=== PATIENT | male | born 1970 | race Caucasian/White ===

== ENCOUNTER 2018-08-23 20:45 | Emergency (ER) | payer OTHER ==
[2018-08-23 21:13] VITALS: BP 143/95
[2018-08-23 22:15] LABS: ANION GAP 15.9 mmol/L (10-20); CHLORIDE,CL 105 mmol/L (98-107); SODIUM,NA 143 mmol/L (136-145)
[2018-08-23] MEDS: Ibuprofen 200 MG Tab PO ONE (22:46)
--- NOTE | 2018-08-24 06:39 | EDM.PDOC ---
ED HPI GENERAL MEDICAL PROBLEM - General Chief Complaint: Cardiovascular Problem Stated Complaint: DIZZINESS Time Seen by Provider: 08/23/18 20:50 Source of Information: Reports: Patient History Limitations: Reports: No Limitations - History of Present Illness INITIAL COMMENTS - FREE TEXT/NARRATIVE: Pt. presents to ER with complaints of palpitations, lightheadedness, fatigue, and near syncope. He states that he has been experiencing the palpitations and sensation of heart racing for a month. He states that he occasionally has some chest discomfort in his L lateral chest if he is lying on his L side. He states tonight he was setting up for an event and had a episode of tunnel vision and lightheadedness that lasted several minutes. He did not ever lose consciousness and he recalls the entire event. He states that he does not have a PCP but is scheduled to see Dr. Mackey tomorrow in the clinic. Pt. denies any substernal chest pain, jaw, arm, neck or back pain. Denies any nausea or vomiting. No diaphoresis. He has also had some intermittent lip numbness/tingling. Denies any shortness of breath. Onset Date: 08/23/18 Location: Reports: Chest Right Flank Pain Score (Numeric/FACES): 4 - Related Data Allergies Allergy/AdvReac Type Severity Reaction Status Date / Time No Known Allergies Allergy Verified 08/23/18 21:02 Home Meds: Home Meds Loratadine [Claritin] 10 mg PO DAILY PRN 03/13/16 [History] Past Medical History HEENT History: Reports: Allergic Rhinitis Other Cardiovascular History: Had an extensive work up for chest pain about a year ago. All tests negative. Genitourinary History: Reports: Renal Calculus - Past Surgical History Other GI Surgeries/Procedures: Hiatal hernia surgery Social & Family History - Tobacco Use Smoking Status *Q: Never Smoker ED ROS GENERAL - Review of Systems Review Of Systems: See Below Constitutional: Reports: No Symptoms HEENT: Reports: No Symptoms Respiratory: Reports: No Symptoms, Pleuritic Chest Pain Cardiovascular: Reports: Chest Pain Endocrine: Reports: No Symptoms GI/Abdominal: Reports: No Symptoms : Reports: Flank Pain (states he feels he is passing a kidney stone) Musculoskeletal: Reports: No Symptoms Skin: Reports: No Symptoms Neurological: Reports: No Symptoms Psychiatric: Reports: No Symptoms Hematologic/Lymphatic: Reports: No Symptoms Immunologic: Reports: No Symptoms ED EXAM, GENERAL - Physical Exam Exam: See Below Exam Limited By: No Limitations General Appearance: Alert, WD/WN, No Apparent Distress Throat/Mouth: Normal Inspection, Normal Lips, Normal Teeth, Normal Gums, Normal Oropharynx, Normal Voice, No Airway Compromise Head: Atraumatic, Normocephalic Neck: Normal Inspection, Supple, Non-Tender, Full Range of Motion Respiratory/Chest: No Respiratory Distress, Lungs Clear, Normal Breath Sounds, No Accessory Muscle Use, Chest Non-Tender Cardiovascular: Normal Peripheral Pulses, Regular Rate, Rhythm, No Edema, No Gallop, No JVD, No Murmur, No Rub GI/Abdominal: Normal Bowel Sounds, Soft, Non-Tender, No Organomegaly, No Distention, No Abnormal Bruit, No Mass (Male) Exam: Deferred Rectal (Males) Exam: Deferred Back Exam: Normal Inspection, Full Range of Motion Extremities: Normal Inspection, Normal Range of Motion, Non-Tender, No Pedal Edema, Normal Capillary Refill Neurological: Alert, Oriented, CN II-XII Intact, Normal Cognition, Normal Gait, Normal Reflexes, No Motor/Sensory Deficits Psychiatric: Normal Affect, Normal Mood Skin Exam: Warm, Dry, Intact, Normal Color, No Rash EKG INTERPRETATION Rhythm: NSR Flushing: Normal P-Wave: Present QRS: Normal ST-T: Normal QT: Normal Course - Vital Signs Last Recorded V/S: Last Vital Signs Temp 36.8 C 08/23/18 21:03 Pulse 72 08/23/18 21:03 Resp 16 08/23/18 21:03 BP 143/95 H 08/23/18 21:03 Pulse Ox 97 08/23/18 21:03 - Orders/Labs/Meds Orders: Active Orders 24 hr Category Date Time Status EKG Documentation Completion [RC] STAT Care 08/23/18 21:11 Active Chest 2V [CR] Stat Exams 08/23/18 21:10 Taken Labs: Laboratory Tests 08/23/18 08/23/18 08/23/18 Range/Units 21:37 21:37 21:37 WBC 10.8 H (4.0-10.0) x10^3/uL RBC 5.18 (4.5-6.0) x10^6/uL Hgb 15.0 (14.0-18.0) g/dL Hct 44.9 (40.0-52.0) % MCV 86.7 (78.0-93.0) fL MCH 29.0 (26.0-32.0) pg MCHC 33.4 (32.0-36.0) g/dL RDW Coeff of Rosa 13.9 (10.0-15.0) % Plt Count 179 (130-400) x10^3/uL Neut % (Auto) 68.3 (50.0-80.0) % Lymph % (Auto) 22.8 L (25.0-50.0) % Cassia % (Auto) 6.7 (2.0-11.0) % Eos % (Auto) 1.9 (0.0-4.0) % Baso % (Auto) 0.3 (0.2-1.2) % PT 10.5 (10.0-12.8) SEC INR 0.9 L (2.0-3.5) D-Dimer, Quantitative (<=0.58) mg/LFEU Sodium 143 (136-145) mmol/L Potassium 3.9 (3.5-5.1) mmol/L Chloride 105 (98-107) mmol/L Carbon Dioxide 26 (21-32) mmol/L Anion Gap 15.9 (10-20) mmol/L BUN 20 H (7-18) mg/dL Creatinine 0.9 (0.70-1.30) mg/dL Est Cr Clr Drug Dosing 116.70 mL/min Estimated GFR (MDRD) > 60 Glucose 102 (74-106) mg/dL Calcium 8.5 (8.5-10.1) mg/dL Corrected Calcium 8.98 (8.5-10.1) mg/dL Phosphorus 4.5 (2.6-4.7) mg/dL Magnesium 2.1 (1.8-2.4) mg/dL Total Bilirubin 0.6 (0.2-1.0) mg/dL AST 9 L (15-37) U/L ALT 24 (16-63) U/L Alkaline Phosphatase 71 (46-116) U/L Troponin I < 0.017 (<=0.056) ng/mL C-Reactive Protein 0.2 (<=0.9) mg/dL NT-Pro-B Natriuret Pep 32 (<=125) pg/mL Total Protein 6.7 (6.4-8.2) g/dL Albumin 3.4 (3.4-5.0) g/dL Globulin 3.3 g/dL Albumin/Globulin Ratio 1.03 TSH, Ultra Sensitive 3.253 (0.358-3.74) uIU/mL 08/23/18 Range/Units 21:37 WBC (4.0-10.0) x10^3/uL RBC (4.5-6.0) x10^6/uL Hgb (14.0-18.0) g/dL Hct (40.0-52.0) % MCV (78.0-93.0) fL MCH (26.0-32.0) pg MCHC (32.0-36.0) g/dL RDW Coeff of Rosa (10.0-15.0) % Plt Count (130-400) x10^3/uL Neut % (Auto) (50.0-80.0) % Lymph % (Auto) (25.0-50.0) % Cassia % (Auto) (2.0-11.0) % Eos % (Auto) (0.0-4.0) % Baso % (Auto) (0.2-1.2) % PT (10.0-12.8) SEC INR (2.0-3.5) D-Dimer, Quantitative < 0.19 (<=0.58) mg/LFEU Sodium (136-145) mmol/L Potassium (3.5-5.1) mmol/L Chloride (98-107) mmol/L Carbon Dioxide (21-32) mmol/L Anion Gap (10-20) mmol/L BUN (7-18) mg/dL Creatinine (0.70-1.30) mg/dL Est Cr Clr Drug Dosing mL/min Estimated GFR (MDRD) Glucose (74-106) mg/dL Calcium (8.5-10.1) mg/dL Corrected Calcium (8.5-10.1) mg/dL Phosphorus (2.6-4.7) mg/dL Magnesium (1.8-2.4) mg/dL Total Bilirubin (0.2-1.0) mg/dL AST (15-37) U/L ALT (16-63) U/L Alkaline Phosphatase (46-116) U/L Troponin I (<=0.056) ng/mL C-Reactive Protein (<=0.9) mg/dL NT-Pro-B Natriuret Pep (<=125) pg/mL Total Protein (6.4-8.2) g/dL Albumin (3.4-5.0) g/dL Globulin g/dL Albumin/Globulin Ratio TSH, Ultra Sensitive (0.358-3.74) uIU/mL Meds: Medications Discontinued Medications Generic Name Dose Route Start Last Admin Trade Name Kareem PRN Reason Stop Dose Admin Ibuprofen 600 mg 08/23/18 22:35 08/23/18 22:46 Motrin PO 08/23/18 22:36 600 mg ONETIME ONE Administration - Re-Assessments/Exams Free Text/Narrative Re-Assessment/Exam: Chest x-ray is negative for acute pathology Departure - Departure Time of Disposition: 23:00 Disposition: Home, Self-Care 01 Condition: Good Clinical Impression: Palpitations, Near syncope Instructions: Palpitations, [id number] Referrals: PCP,None [Primary Care Provider] - Forms: ED Department Discharge Additional Instructions: Home to rest. I advise you get a stress test and holter study done in the near future. Return to ER if you have persistent palpitations, chest pain, shortness of breath, or lightheadedness. - My Orders Last 24 Hours: My Active Orders 08/23/18 21:10 Chest 2V [CR] Stat 08/23/18 21:11 EKG Documentation Completion [RC] STAT - Assessment/Plan Last 24 Hours: My Active Orders 08/23/18 21:10 Chest 2V [CR] Stat 08/23/18 21:11 EKG Documentation Completion [RC] STAT Plan: Pt. was discharged. All of his studies were within normal limits, including trop I, d dimer, chest x-ray and EKG. He will follow-up with Dr. Mackey. Discussed findings with the patient. He had only occasional PVCs and no tachycardia during his stay in ER. He should have a stress test/stress echo and holter study. He did not have any pain during his stay in ER. Advised him to return to ER if he has any chest pain, lightheadedness, syncope, or shortness of breath.
--- NOTE | 2018-08-24 09:00 | CR ---
[id number] RAD/RAD Chest PA And Lateral EXAM: RAD Chest PA And Lateral CLINICAL DATA: BRADYCARDIA. SYNCOPE. COMPARISON: CORRELATION IS MADE WITH THE EXAM OF SEPTEMBER 25, 2014. FINDINGS: The lungs are clear. The cardiomediastinal contour is prominent but stable. The regional bones and soft tissues are unremarkable. IMPRESSION: NO ACUTE PROCESS. Caden So MD 08/24/18 0858 Thank you for allowing us to participate in the care of your patient.
== END 2018-08-23 23:00 | disposition home or self-care (01) ==
LOC: VM.ED 20:45
DX: R55 Syncope and collapse (principal); R00.2 Palpitations; Z79.899 Other long term (current) drug therapy
CPT/HCPCS: 36415; 71046; 80053; 83735; 83880; 84100; 84443; 84484; 85025; 85379; 85610; 86140; 93005; 99284; A9270-GY

== ENCOUNTER 2019-07-18 07:29 | Emergency (ER) | payer OTHER ==
[2019-07-18] MEDS: Lactated Ringers 1,000 ML IV ONE (07:45)
[2019-07-18 08:07] VITALS: BP 154/103; PULSE 76
[2019-07-18 08:22] LABS: CHLORIDE,CL 107 mmol/L (98-107); SODIUM,NA 143 mmol/L (136-145)
[2019-07-18 08:23] LABS: ANION GAP 14.5 mmol/L (10-20)
--- NOTE | 2019-07-18 09:22 | EDM.PDOC ---
ED HPI GENERAL MEDICAL PROBLEM - General Chief Complaint: Flank Pain Stated Complaint: Left FLank Pain Time Seen by Provider: 07/18/19 08:00 Source of Information: Reports: Patient History Limitations: Reports: No Limitations - History of Present Illness INITIAL COMMENTS - FREE TEXT/NARRATIVE: Patient comes emergency department today with complaints of left flank pain and most likely a kidney stone he reports. She has a longstanding history of recurrent kidney stones. He usually has 2-3 a year. They have been primarily calcium oxalate. His last kidney stone was a couple of months ago. He has seen nephrology for the kidney stones as well as urology. He usually drinks about 3 L of water a day to prevent kidney stone formation. This morning he woke up had a severe pain in his left flank very consistent crampy colicky type pain with his kidney stones in the past. He had a very painful urination that appeared to be more concentrated than it typically would be for him. Take his Flomax at home that he typically does when he has a kidney stone. He continued to have very severe pain more than normal so he came to the ED. Just prior to arrival to the ED the patients pain resolved on its own. He has had no steffen hematuria. No fever no chills. He had some nausea with the severe waves of pain this morning but it has resolved. No vomiting. No other pain in his abdomen. No diarrhea or constipation. No fever no chills. Left Flank Pain Pain Score (Numeric/FACES): 3 - Related Data Allergies Allergy/AdvReac Type Severity Reaction Status Date / Time No Known Allergies Allergy Verified 07/18/19 07:55 Home Meds: Home Meds Loratadine [Claritin] 10 mg PO DAILY PRN 03/13/16 [History] Ondansetron [Ondansetron ODT] 4 mg PO Q6H PRN #20 tab.rapdis 07/18/19 [Rx] Tamsulosin HCl [Flomax] 0.4 mg PO DAILY PRN 07/18/19 [History] Tamsulosin [Flomax] 0.4 mg PO DAILY #30 cap.er 07/18/19 [Rx] Past Medical History HEENT History: Reports: Allergic Rhinitis Other Cardiovascular History: Had an extensive work up for chest pain about a year ago. All tests negative. Genitourinary History: Reports: Renal Calculus Musculoskeletal History: Reports: Arthritis - Past Surgical History Other GI Surgeries/Procedures: Hiatal hernia surgery Male Surgical History: Reports: Lithotripsy (ESWL) Social & Family History - Tobacco Use Smoking Status *Q: Never Smoker - Recreational Drug Use Recreational Drug Use: No ED ROS GENERAL - Review of Systems Review Of Systems: Comprehensive ROS is negative, except as noted in HPI. ED EXAM, RENAL/ - Physical Exam Exam: See Below Text/Narrative:: Patient is resting very comfortably on the cot and appears in no acute distress or discomfort. Exam Limited By: No Limitations General Appearance: Alert, WD/WN Eye Exam: Bilateral Eye: EOMI, PERRL Ears: Normal External Exam Nose: Normal Inspection Throat/Mouth: Normal Inspection, Normal Lips, Normal Oropharynx Head: Atraumatic, Normocephalic Neck: Normal Inspection Respiratory/Chest: No Respiratory Distress, Lungs Clear, Normal Breath Sounds, No Accessory Muscle Use Cardiovascular: Normal Peripheral Pulses, Regular Rate, Rhythm GI/Abdominal: Normal Bowel Sounds, Soft, Non-Tender (Male) Exam: Deferred Rectal (Males) Exam: Deferred Back Exam: Normal Inspection, Full Range of Motion. No: CVA Tenderness (L), CVA Tenderness (R) Extremities: Normal Inspection, No Pedal Edema Neurological: Alert, Oriented, Normal Cognition, No Motor/Sensory Deficits Psychiatric: Normal Affect, Normal Mood Skin Exam: Warm, Dry, Intact, Normal Color, No Rash Lymphatic: No Adenopathy Course - Vital Signs Last Recorded V/S: Last Vital Signs Temp 36.6 C 07/18/19 08:03 Pulse 76 07/18/19 08:03 Resp 16 07/18/19 08:03 BP 154/103 H 07/18/19 08:03 Pulse Ox 96 07/18/19 08:03 - Orders/Labs/Meds Labs: Laboratory Tests 07/18/19 07/18/19 07/18/19 Range/Units 07:45 07:45 08:45 WBC 7.2 (4.0-10.0) x10^3/uL RBC 5.22 (4.5-6.0) x10^6/uL Hgb 14.8 (14.0-18.0) g/dL Hct 44.9 (40.0-52.0) % MCV 86.0 (78.0-93.0) fL MCH 28.4 (26.0-32.0) pg MCHC 33.0 (32.0-36.0) g/dL RDW Coeff of Rosa 14.3 (10.0-15.0) % Plt Count 196 (130-400) x10^3/uL Neut % (Auto) 55.0 (50.0-80.0) % Lymph % (Auto) 30.5 (25.0-50.0) % Ulster % (Auto) 9.6 (2.0-11.0) % Eos % (Auto) 4.6 H (0.0-4.0) % Baso % (Auto) 0.3 (0.2-1.2) % Sodium 143 (136-145) mmol/L Potassium 3.5 (3.5-5.1) mmol/L Chloride 107 (98-107) mmol/L Carbon Dioxide 25 (21-32) mmol/L Anion Gap 14.5 (10-20) mmol/L BUN 13 (7-18) mg/dL Creatinine 1.0 (0.70-1.30) mg/dL Est Cr Clr Drug Dosing 103.89 mL/min Estimated GFR (MDRD) > 60 Glucose 108 H (74-106) mg/dL Calcium 8.3 L (8.5-10.1) mg/dL Urine Color Yellow (YELLOW) Urine Appearance Slightly cloudy H (CLEAR) Urine pH 7.0 (5.0-8.0) Ur Specific Clyde 1.025 Urine Protein Negative (NEGATIVE) mg/dL Urine Glucose (UA) Negative (NEGATIVE) mg/dL Urine Ketones Negative (NEGATIVE) mg/dL Urine Occult Blood Moderate H (NEGATIVE) Urine Nitrite Negative (NEGATIVE) Urine Bilirubin Negative (NEGATIVE) Urine Urobilinogen 0.2 (0.2) EU/dL Ur Leukocyte Esterase Negative (NEGATIVE) Urine RBC 30-40 H (NOT SEEN) /HPF Urine WBC 0-5 (NOT SEEN) /HPF Ur Squamous Epith Cells Not seen (NEGATIVE) /HPF Amorphous Sediment Moderate Urine Bacteria Rare (NEGATIVE) /HPF Urine Mucus Few H (NEGATIVE) /LPF Meds: Medications Discontinued Medications Generic Name Dose Route Start Last Admin Trade Name Freq PRN Reason Stop Dose Admin Lactated Ringer's 1,000 mls @ 999 mls/hr 07/18/19 08:13 07/18/19 07:45 Ringers, Lactated IV 07/18/19 09:13 999 mls/hr ONETIME ONE Administration Orphenadrine Citrate 60 mg 07/18/19 08:13 07/18/19 08:17 Norflex IV 07/18/19 08:14 60 mg ONETIME ONE Administration - Re-Assessments/Exams Free Text/Narrative Re-Assessment/Exam: 07/18/19 Although the patient's pain has already resolved after the Flomax and ibuprofen taken at home I did give him Norflex IV as well as a liter of LR. His laboratory evaluation is rather unremarkable for his blood panel. His urine clearly has quite a bit of blood in it but there is no infectious property. As his pain is completely resolved it is most likely that the stone is already passed into his bladder. I did offer a CT scan of the abdomen although I do not feel that it will change much for management at this time as he is most likely already gotten his stone down into his bladder and he has had recurrent stones he is very aware of what his symptomology is for stones and this is a very typical presentation for kidney stones. They are comfortable with just straining his urine and returning if there is any other bumps. I will send him home with some extra Flomax as well as Zofran and hydrocodone in case he has recurrence of his kidney stones. Is very typical management that he has had before in the past for his stones. He is comfortable with this plan and his questions are answered. Departure - Departure Time of Disposition: 09:16 Disposition: Home, Self-Care 01 Clinical Impression: Kidney stone on left side, Ureteric colic - Discharge Information Prescriptions: Ondansetron [Ondansetron ODT] 4 mg PO Q6H PRN #20 tab.rapdis PRN Reason: Nausea/Vomiting Tamsulosin [Flomax] 0.4 mg PO DAILY #30 cap.er Instructions: Kidney Stones, [id number] Referrals: Genesis Mackey MD [Primary Care Provider] - Forms: ED Department Discharge Additional Instructions: Increase fluids as much as possible for the next few days. Flomax, 1 capsule daily for the next 7 days. Rx sent to Pharmacy. Ondansetron, 1 tab every 6 hrs as needed for nausea vomiting. Rx sent to Pharmacy. Tylenol and or Ibuprofen as needed for pain. If pain not controlled with above. [place]uma, 1 tablet every 4 hours with food as needed for pain. Caution sedation. Rx given to the patient #15. Return to the ED if new or worsening symptoms. Follow up with PCP in the next week if not improving sooner if worse. Sepsis Event Note - Evaluation Sepsis Screening Result: No Definite Risk - Focused Exam Vital Signs: Vital Signs Temp Pulse Resp BP Pulse Ox 07/18/19 08:03 36.6 C 76 16 154/103 H 96 Date Exam was Performed: 07/18/19 Time Exam was Performed: 15:13 - Assessment/Plan Assessment:: Recurrent kidney stone. Most likely already passed into the bladder. Plan: Increase fluids as much as possible for the next few days. Flomax, 1 capsule daily for the next 7 days. Rx sent to Pharmacy. Ondansetron, 1 tab every 6 hrs as needed for nausea vomiting. Rx sent to Pharmacy. Tylenol and or Ibuprofen as needed for pain. If pain not controlled with above. Yuma, 1 tablet every 4 hours with food as needed for pain. Caution sedation. Rx given to the patient #15. Return to the ED if new or worsening symptoms. Follow up with PCP in the next week if not improving sooner if worse.
== END 2019-07-18 09:35 | disposition home or self-care (01) ==
LOC: SUPCPDRO 07:29 → VM.ED 07:29
DX: N20.0 Calculus of kidney (principal); M19.90 Unspecified osteoarthritis, unspecified site; Z87.442 Personal history of urinary calculi; Z79.899 Other long term (current) drug therapy
CPT/HCPCS: 36415; 80048; 81001; 85025; 96361; 96374; 99284; J2360; J7120

== ENCOUNTER 2020-05-02 08:24 | Day surgery (SDC) | payer OTHER ==
[~2020-05-02 08:24] MED LIST: Lactated Ringers 1,000 ML IV SCH; Sodium Chloride 0.9% 10 ML Syringe FLUSH PRN
[2020-05-02] MEDS ORDERED: fentaNYL 100 MCG/2 ML SDV ONE (08:48)
[2020-05-02] MEDS ORDERED: Propofol 200 MG/20 ML SDV ONE ×5 (08:48→11:18)
[2020-05-02] MEDS: Ondansetron 4 MG/2 ML SDV IV PRN (09:00)
[2020-05-02] MEDS: Lactated Ringers 1,000 ML IV SCH (09:01)
[2020-05-02] MEDS ORDERED: Metoclopramide 10 MG/2 ML SDV ONE (10:43)
[2020-05-02 12:33] VITALS: BP 135/89; PULSE 81
--- NOTE | 2020-05-02 13:20 | OR ---
PREOPERATIVE DIAGNOSIS: Screening colonoscopy. POSTOPERATIVE DIAGNOSIS: Colon polyps. PROCEDURE PERFORMED: Total flexible colonoscopy with biopsies. ANESTHESIA: MAC anesthesia. COMPLICATIONS: None apparent. BLOOD LOSS: Minimal. FINDINGS: 1. Sigmoid colon polyp, 2 mm, cold forceps. 2. Sigmoid colon polyps x2, 3 mm/2 mm, cold forceps. 3. Moderate sigmoid diverticulosis. START TIME: 1047. CECUM TIME: 1112. STOP TIME: 1132. BOWEL PREP: Lander class 2. INDICATIONS FOR PROCEDURE: Mr. Feliciano is a 49-year-old male who is here for his first routine screening colonoscopy. He has no family history of colon cancer. He denies any bloody or dark black stools. DETAILS OF PROCEDURE: After informed consent was obtained, the patient was brought to the procedure room and placed in left lateral decubitus position. MAC anesthesia was induced by Anesthesia colleagues. The colonoscope was introduced into the rectum and advanced all the way to the cecum. The appendiceal orifice and ileocecal valve were photographed. The colonoscope was then slowly withdrawn. No pathology was identified except for what is mentioned in the above findings section. Retroflexed view was obtained and the procedure was terminated. PATHOLOGY: A) Colon, sigmoid polyp Hyperplastic polyp B) Colon, sigmoid polyps Hyperplastic polyps RECOMMENDATIONS: Repeat screening colonoscopy in 10 years. RKM: 05/02/2020 11:42:12 MODL: 05/02/2020 12:08:34 /[id number] MTDD
--- NOTE | 2020-05-13 14:06 | LETTER ---
05/13/2020 RE: NAVDEEP PONCE : 1970 Navdeep Ponce [address] [place] [id number] Dear Mr. Ponce: I am writing to inform you of the pathology reports from your recent colonoscopy. You had 3 polyps which were hyperplastic polyps. A hyperplastic polyp is a benign polyp which is not considered precancerous. You will need another repeat screening colonoscopy in 10 years. Warmest regards,
== END 2020-05-02 12:45 | disposition home or self-care (01) ==
LOC: VM.SDS 08:24
PROVIDERS: ATTEND Student in an Organized Health Care Education/Training Program
DX: Z12.11 Encounter for screening for malignant neoplasm of colon (principal); K63.5 Polyp of colon; K57.30 Diverticulosis of large intestine without perforation or abscess without bleeding; E66.9 Obesity, unspecified; K21.9 Gastro-esophageal reflux disease without esophagitis; Z98.84 Bariatric surgery status; Z98.890 Other specified postprocedural states; G89.29 Other chronic pain; Z79.899 Other long term (current) drug therapy; Z68.33 Body mass index [BMI] 33.0-33.9, adult
CPT/HCPCS: 00812; J2405; J2704; J2765; J3010; J7120

== ENCOUNTER 2020-12-16 12:20 | Emergency (ER) | payer OTHER ==
[2020-12-16] MEDS ORDERED: Orphenadrine 60 MG/2 ML Inj IM ONE (12:23)
[2020-12-16] MEDS: Orphenadrine 60 MG/2 ML Inj IV ONE (12:50)
[2020-12-16] MEDS: Ketorolac 30 MG/ML SDV IVPUSH ONE (12:50)
[2020-12-16 13:00] LABS: CHLORIDE,CL 101 mmol/L (98-107); SODIUM,NA 134 mmol/L (136-145)
[2020-12-16 13:01] LABS: ANION GAP 11.9 mmol/L (5-15)
--- NOTE | 2020-12-16 13:08 | CT ---
[id number] CT/CT Abdomen Pelvis WO IV EXAM: ABDOMEN AND PELVIS CT WITHOUT CONTRAST INDICATION: Right flank pain with concern for renal calculus. COMPARISON: September 03, 2016. DISCUSSION: There are couple of small nonobstructing left intrarenal calculi. No right-sided calculi. No ureteral calculus or hydronephrosis on either side. Mild subsegmental atelectasis or scarring in the lung bases. Cholecystectomy. Diverticulosis of the colon without evidence of diverticulitis. Small fat-containing umbilical and right inguinal hernias. Unenhanced images of the liver, pancreas, spleen, adrenal glands, small bowel, and the appendix are normal in appearance. No adenopathy, free air free fluid. IMPRESSION: 1. Nonobstructing left intrarenal calculi. No ureteral calculus or hydronephrosis on either side. Rufus Sorensen MD 12/16/20 [id number] Thank you for allowing us to participate in the care of your patient.
[2020-12-16 13:25] VITALS: BP 139/84; PULSE 67
[2020-12-16] MEDS: Sodium Chloride 0.9% 1,000 ML IV ONE (13:30)
--- NOTE | 2020-12-16 13:41 | EDM.PDOC ---
ED HPI GENERAL MEDICAL PROBLEM - General Chief Complaint: Genitourinary Problem Stated Complaint: KIDNEY STONE Time Seen by Provider: 12/16/20 12:20 Source of Information: Reports: Patient, Family, RN, RN Notes Reviewed History Limitations: Reports: No Limitations - History of Present Illness INITIAL COMMENTS - FREE TEXT/NARRATIVE: Patient is a 50-year-old male who presents to ER with complaint of right sided abdominal/flank pain that is sharp and began approximately 230 this morning. Patient states the pain woke him up. Admits to nausea vomiting, hot flashes, chills. Denies fever, diarrhea. Patient admits to urinary retention. States he only urinated a small amount this morning and has not urinated since 0900 today. Patient states significant history of kidney stones. He states most of his stones are on the right side, very rarely on the left. Patient feels he has an obstructing stone at this time. Denies blood in the urine. Patient states last bowel movement was yesterday and was normal for him. Onset: Today, Sudden Treatments DIET TECH: Reports: Other (see below) Other Treatments DIET TECH: hydrocodone, zofran. Right Middle Abdominal Pain Score (Numeric/FACES): 6 - Related Data Allergies Allergy/AdvReac Type Severity Reaction Status Date / Time No Known Allergies Allergy Verified 05/02/20 09:18 Home Meds: Home Meds Acetaminophen/HYDROcodone [[place] 325-5 MG] 1 - 2 tab PO Q6H PRN 03/03/20 [History] Alclometasone [Aclovate 0.05%] 1 applic TOP BID 03/03/20 [History] Ibuprofen 200 - 600 mg PO Q4H PRN 03/03/20 [History] Loratadine/Pseudoephedrine [Claritin-D 12 Hour] 1 tab PO BID 03/03/20 [History] Multivitamin 1 each PO DAILY 03/03/20 [History] Tamsulosin [Flomax] 0.4 mg PO DAILY PRN 03/03/20 [History] Past Medical History HEENT History: Reports: Allergic Rhinitis Other Cardiovascular History: Had an extensive work up for chest pain about a year ago. All tests negative. Respiratory History: Reports: Other (See Below) Other Respiratory History: snoring, chronic hiccoughs Gastrointestinal History: Reports: GERD Genitourinary History: Reports: Renal Calculus Musculoskeletal History: Reports: Arthritis, Other (See Below) Other Musculoskeletal History: congenital pes planus Neurological History: Reports: Other (See Below) Other Neuro History: RLS, periodic limb movement disorder Endocrine/Metabolic History: Reports: Obesity/BMI 30+ Dermatologic History: Reports: Melanoma - Past Surgical History GI Surgical History: Reports: Cholecystectomy, EGD, Kat[place] Fundoplication Other GI Surgeries/Procedures: Hiatal hernia surgery Male Surgical History: Reports: Lithotripsy (ESWL), Renal Calculus Musculoskeletal Surgical History: Reports: Shoulder Surgery Social & Family History - Tobacco Use Tobacco Use Status *Q: Never Tobacco User Second Hand Smoke Exposure: No - Recreational Drug Use Recreational Drug Use: No ED ROS GENERAL - Review of Systems Review Of Systems: Comprehensive ROS is negative, except as noted in HPI. ED EXAM, RENAL/ - Physical Exam Exam: See Below Exam Limited By: No Limitations General Appearance: Alert, WD/WN, Mild Distress Eye Exam: Bilateral Eye: EOMI, Normal Inspection Ears: Normal External Exam, Hearing Grossly Normal Nose: Normal Inspection Throat/Mouth: Normal Inspection, Normal Voice, No Airway Compromise Head: Atraumatic, Normocephalic Neck: Normal Inspection, Supple, Non-Tender, Full Range of Motion Respiratory/Chest: No Respiratory Distress, Lungs Clear, Normal Breath Sounds, No Accessory Muscle Use, Chest Non-Tender Cardiovascular: Normal Peripheral Pulses, Regular Rate, Rhythm, No Edema, No Gallop, No JVD, No Murmur, No Rub GI/Abdominal: Normal Bowel Sounds, Soft, Tender (Right upper quadrant/right flank) (Male) Exam: Deferred Rectal (Males) Exam: Deferred Back Exam: Normal Inspection, Full Range of Motion, CVA Tenderness (R) Extremities: Normal Inspection, Normal Range of Motion, Non-Tender, Normal Capillary Refill, No Pedal Edema Neurological: Alert, Oriented, Normal Cognition, Normal Gait, No Motor/Sensory Deficits Psychiatric: Normal Affect, Normal Mood Skin Exam: Warm, Dry, Intact, Normal Color, No Rash Lymphatic: No Adenopathy Course - Vital Signs Last Recorded V/S: Last Vital Signs Temp 97.1 F 12/16/20 12:40 Pulse 67 12/16/20 12:40 Resp 18 12/16/20 12:40 BP 139/84 12/16/20 12:40 Pulse Ox 97 12/16/20 12:40 - Orders/Labs/Meds Labs: Laboratory Tests 12/16/20 12/16/20 12/16/20 Range/Units 12:30 12:30 12:59 WBC 7.0 (4.0-10.0) x10^3/uL RBC 5.35 (4.5-6.0) x10^6/uL Hgb 15.3 (14.0-18.0) g/dL Hct 45.5 (40.0-52.0) % MCV 85.0 (78.0-93.0) fL MCH 28.6 (26.0-32.0) pg MCHC 33.6 (32.0-36.0) g/dL RDW Coeff of Rosa 13.6 (10.0-15.0) % Plt Count 152 (130-400) x10^3/uL Immature Gran % (Auto) 0.10 (0.00-0.43) % Neut % (Auto) 67.8 (50.0-80.0) % Lymph % (Auto) 22.0 L (25.0-50.0) % [place] % (Auto) 7.0 (2.0-11.0) % Eos % (Auto) 2.7 (0.0-4.0) % Baso % (Auto) 0.4 (0.2-1.2) % Neut # (Auto) 4.8 (1.8-7.7) x10^3/uL Lymph # (Auto) 1.5 (1.0-4.8) x10^3/uL [place] # (Auto) 0.5 (0.0-0.8) x10^3/uL Eos # (Auto) 0.2 (0.0-0.5) x10^3/uL Baso # (Auto) 0.0 (0.0-0.2) x10^3/uL Immature Gran # (Auto) 0.01 (0.00-0.07) x10^3/uL Sodium 134 L (136-145) mmol/L Potassium 3.9 (3.5-5.1) mmol/L Chloride 101 (98-107) mmol/L Carbon Dioxide 25 (21-32) mmol/L Anion Gap 11.9 (5-15) mmol/L BUN 15 (7-18) mg/dL Creatinine 1.0 (0.70-1.30) mg/dL Est Cr Clr Drug Dosing TNP Estimated GFR (MDRD) > 60 Glucose 141 H (70-99) mg/dL Calcium 8.2 L (8.5-10.1) mg/dL Corrected Calcium 8.5 (8.5-10.1) mg/dL Total Bilirubin 1.0 (0.2-1.0) mg/dL AST 11 L (15-37) U/L ALT 21 (16-63) U/L Alkaline Phosphatase 75 (46-116) U/L C-Reactive Protein 0.3 (<=0.9) mg/dL Total Protein 6.6 (6.4-8.2) g/dL Albumin 3.6 (3.4-5.0) g/dL Globulin 3.0 Albumin/Globulin Ratio 1.20 Urine Color Yellow (YELLOW) Urine Appearance Clear (CLEAR) Urine pH 7.0 (5.0-8.0) Ur Specific [place] 1.015 Urine Protein Negative (NEGATIVE) mg/dL Urine Glucose (UA) Negative (NEGATIVE) mg/dL Urine Ketones Negative (NEGATIVE) mg/dL Urine Occult Blood Negative (NEGATIVE) Urine Nitrite Negative (NEGATIVE) Urine Bilirubin Negative (NEGATIVE) Urine Urobilinogen 0.2 (0.2) EU/dL Ur Leukocyte Esterase Negative (NEGATIVE) Meds: Medications Discontinued Medications Generic Name Dose Route Start Last Admin Trade Name Freq PRN Reason Stop Dose Admin Sodium Chloride 1,000 mls @ 999 mls/hr 12/16/20 12:03 12/16/20 13:30 Normal Saline IV 12/16/20 13:03 999 mls/hr ONETIME ONE Administration Ketorolac Tromethamine 30 mg 12/16/20 12:03 12/16/20 12:50 Ketorolac 30 Mg/Ml Sdv IVPUSH 12/16/20 12:04 30 mg ONETIME ONE Administration Orphenadrine Citrate 60 mg 12/16/20 12:23 Orphenadrine 60 Mg/2 Ml Inj IM 12/16/20 12:24 ONETIME ONE Orphenadrine Citrate 60 mg 12/16/20 13:42 12/16/20 12:50 Orphenadrine 60 Mg/2 Ml Inj IV 12/16/20 13:43 60 mg ONETIME ONE Administration - Radiology Interpretation Free Text/Narrative:: CT abdomen without contrast: No acute findings, nonobstructing stones in the left kidney, no stones on the right. See radiologist report Departure - Departure Time of Disposition: 14:06 Disposition: Home, Self-Care 01 Condition: Fair Clinical Impression: Kidney stone on left side Abdominal pain Qualifiers: Abdominal location: right lower quadrant Qualified Code(s): R10.31 - Right lower quadrant pain Constipation Qualifiers: Constipation type: unspecified constipation type Qualified Code(s): K59.00 - Constipation, unspecified - Discharge Information *PRESCRIPTION DRUG MONITORING PROGRAM REVIEWED*: No *COPY OF PRESCRIPTION DRUG MONITORING REPORT IN PATIENT LORI: No Instructions: Renal Colic, [id number], Constipation, Adult, [id number], Kid adriana Stones, [id number], Abdominal Pain, Adult, [id number], Flank Pain, Adult, [id number] Referrals: Genesis Mackey MD [Primary Care Provider] - Forms: ED Department Discharge Additional Instructions: May use Tylenol and/or ibuprofen as directed for pain Drink plenty of water May use MiraLAX [id number] as directed Follow-up with your primary care provider Return to the ER with any worsening of symptoms Sepsis Event Note (ED) - Focused Exam Vital Signs: Vital Signs Temp Pulse Resp BP Pulse Ox 12/16/20 12:40 97.1 F 67 18 139/84 97
== END 2020-12-16 14:17 | disposition home or self-care (01) ==
LOC: VM.ED 12:20
DX: N20.0 Calculus of kidney (principal); K59.00 Constipation, unspecified; E66.9 Obesity, unspecified; K21.9 Gastro-esophageal reflux disease without esophagitis; Z87.442 Personal history of urinary calculi; Z79.899 Other long term (current) drug therapy; Z68.30 Body mass index [BMI] 30.0-30.9, adult
CPT/HCPCS: 36415; 74176; 80053; 81003; 85025; 86140; 96374; 96375; 99284; 99284-25; J1885; J2360; J7030

== ENCOUNTER 2022-04-03 14:18 | Emergency (ER) | payer OTHER ==
[2022-04-03 16:54] VITALS: BP 168/105; PULSE 84
[2022-04-03 17:30] LABS: CORONAVIRUS COVID-19 NAA NEGATIVE (NEGATIVE); RESPIRATORY SYNCYTIAL VIR NAA POSITIVE (NEGATIVE)
[2022-04-03] MEDS ORDERED: Take Home: Codeine/Promethazine 10-6.25 MG/5 ML Syrup 5 ML, 2 Cup Pack PO ONE (17:39)
[2022-04-03] MEDS ORDERED: Take Home: Albuterol 18 GM Inhaler, 1 Inhaler Pack INH PRN (17:40)
== END 2022-04-03 17:50 | disposition home or self-care (01) ==
LOC: VM.ED 14:18
DX: R53.83 Other fatigue (principal); B97.4 Respiratory syncytial virus as the cause of diseases classified elsewhere; Z79.899 Other long term (current) drug therapy; Z20.822 Contact with and (suspected) exposure to COVID-19
CPT/HCPCS: 0241U; 71046; 99283; 99284; A9270-GY